=== PATIENT | female | born 1970 | race Two or more races ===

== ENCOUNTER 2024-10-31 07:00 | Day surgery (SDC) | payer OTHER ==
[2024-10-25 09:16] LABS: URINE APPEARANCE Clear; URINE BILIRRUBIN Negative (NEGATIVE); URINE BLOOD Trace; URINE COLOR Yellow; URINE GLUCOSE Negative (NEGATIVE); URINE KETONE Negative (NEGATIVE); URINE LEUKOCYTE Small; URINE NITRATE Negative; URINE PROTEIN Negative (NEGATIVE); URINE UROBILINOGEN 0.2 E.U./dl
[2024-10-25 09:17] LABS: URINE BACTERIA 116.4 uL (0.0-1933); URINE EPITHELIAL CELLS 12.5 uL (0.0-38.8); URINE RBC 3.8 uL (0.0-20.8); URINE WBC 21.8 uL (0.0-23.2)
[2024-10-25 09:19] LABS: BASO % 0.6 % (0.1-1.2); EOS # 0.10 (0.04-0.54); EOS % 1.6 % (0.7-7.0); LYMPH # 1.62 (1.18-3.74); LYMPH % 26.2 % (19.3-53.1); MEAN PLATELET VOLUME 12.20 fl (9.4-12.4); MONO # 0.44 (0.24-0.82); MONO % 7.1 % (4.7-12.5); NEUT # 3.96 (1.56-6.13); NEUT % 64.2 % (34.0-71.1); RED CELL DISTRIBUTION WIDTH 12.0 % (11.6-14.4)
[2024-10-25 09:24] LABS: URINE CAST 0.14 uL (0.0-1.40)
[2024-10-25 09:45] LABS: INR 0.98
[2024-10-25 09:50] LABS: ALT/SGPT 17.0 U/L (12-78); AST/SGOT 11.0 U/L (15-37); BILIRUBIN TOTAL 0.93 mg/dL (0.3-1.2); BUN CREA RATIO 20.0 (7.0-25.0); CREATININE SERUM 0.76 mg/dL (0.55-1.02); GFR 79.91; GLOBULINA 3.0 G/DL (2.4-3.5); GLUCOSE FASTING 97.0 mg/dL (65-100); OSMOLALITY SERUM 289.0 MOSM/KG (275-295)
[~2024-10-31 07:00] MED LIST: ESTROGENO; PROMETRIUM200 MG; [UNRECOGNIZED DRUG - OTHER]
[2024-10-31] MEDS ORDERED: CEFAZOLIN SODIUM 1,000 MG VIAL ONE (07:59)
[2024-10-31] MEDS ORDERED: POVIDONE-IODINE 118 ML BOTT TOP ONE (09:02)
[2024-10-31] MEDS ORDERED: IBU600 MG PO (11:31)
[2024-10-31] MEDS ORDERED: DOXYCYCLINE HY100 M2 PO (11:31)
== END 2024-10-31 14:50 | disposition home or self-care (01) ==
LOC: CIR.AMB 07:00
PROVIDERS: ATTEND Obstetrics & Gynecology
DX: N95.0 Postmenopausal bleeding (principal); N84.0 Polyp of corpus uteri; N80.03 Adenomyosis of the uterus; Z91.013 Allergy to seafood